=== PATIENT | male | born 1960 | race Hispanic/Latino ===

== ENCOUNTER 2017-07-24 20:09 | Emergency (ER) | payer SELFPAY, OTHER ==
[2017-07-24] MEDS ORDERED: Adacel (T-DAP) 0.5 ML VIAL ONE (21:12)
[2017-07-24] MEDS ORDERED: Acetaminophen/Codeine 30-300mg Tablet ONE (22:00)
--- NOTE | 2017-07-24 22:00 | RAD ---
TWO VIEWS LEFT SMALL FINGER: 07/24/17 HISTORY: Laceration to fifth digit today. FINDINGS: There is soft tissue defect involving the medial aspect distal portion of the left small finger nadira tible with laceration. No fracture or dislocation is seen involving the left small finger. No radiopa que foreign body is seen. IMPRESSION: Soft tissue defect related to laceration involving the distal portion of the left small finger. No un derlying fracture is seen. POS: [facility]
== END 2017-07-24 22:02 | disposition home or self-care (01) ==
LOC: ERS 20:09
DX: S61.217A Laceration without foreign body of left little finger without damage to nail, initial encounter (principal); E11.9 Type 2 diabetes mellitus without complications; I10 Essential (primary) hypertension; W27.0XXA Contact with workbench tool, initial encounter
CPT/HCPCS: 90471; 90715